=== PATIENT | male | born 1985 | race Caucasian/White ===

== ENCOUNTER 2024-12-21 14:22 | Emergency (ER) | payer OTHER ==
[2024-12-21 15:07] VITALS: RESP 20; TEMP 98.8; BMI 22.9
[2024-12-21 15:24] LABS: ABSOLUTE IMMATURE GRANULOCYTES 0.02 x10^3/uL (0.0-0.031); BASOPHILS # 0.03 x10^3/uL (0.01-0.08); EOSINOPHIL % 0.3 % (0.8-7.0); EOSINOPHILS # 0.02 x10^3/uL (0.04-0.54); HEMATOCRIT 45.4 % (40.1-51.0); HEMOGLOBIN 15.6 g/dL (13.7-17.5); MCHC 34.4 g/dl (32.3-36.5); MEAN CELL VOLUME 87.5 fl (79.0-92.2); MEAN PLT VOLUME 10.2 fl (9.4-12.4); MONOCYTE # 0.62 x10^3/uL (0.30-0.82); MONOCYTE % 8.3 % (5.3-12.2); PLATELET COUNT 290 x10^3/uL (163-337); RDW 11.8 % (12.0-15.6)
[2024-12-21 15:32] LABS: URINE APPEARANCE CLEAR; URINE BILIRUBIN NEGATIVE (NEGATIVE); URINE COLOR YELLOW; URINE GLUCOSE (UA) NEGATIVE (NEGATIVE); URINE KETONE NEGATIVE (NEGATIVE); URINE LEUK ESTERASE NEGATIVE (NEGATIVE); URINE NITRITE NEGATIVE (NEGATIVE); URINE PROTEIN NEGATIVE (NEGATIVE); URINE UROBILINOGEN 0.2 mg/dL (0.2-1.0)
[2024-12-21 15:44] LABS: POTASSIUM 3.9 mmol/L (3.5-5.1)
[2024-12-21 15:46] LABS: ALBUMIN 4.2 g/dl (3.4-5.0); CALCIUM 9.9 mg/dL (8.5-10.1)
[2024-12-21 15:47] LABS: BLOOD UREA NITROGEN 9.2 mg/dL (7-18)
[2024-12-21 15:50] LABS: CREATININE 0.8 mg/dL (0.55-1.3)
[2024-12-21 15:51] LABS: BILIRUBIN,TOTAL 0.7 mg/dL (0.2-1); TOT PROT 7.2 g/dl (6.4-8.2)
[2024-12-21] MEDS ORDERED: FAMOTIDINE 20 MG/50 ML IVPB 20 MG/50 ML MG IVPB ONE (15:54)
[2024-12-21] MEDS ORDERED: DEXAMETHASONE SOD PHOSPHATE 10 MG/1 ML VIAL ONE (15:54)
[2024-12-21] MEDS: FAMOTIDINE 20 MG/50 ML IVPB 20 MG/50 ML MG IVPB ONE (16:03)
[2024-12-21] MEDS: ACETAMINOPHEN 1000 MG/100 ML BAG IVPB ONE ×2 (16:03→16:24)
[2024-12-21] MEDS: DEXAMETHASONE SOD PHOSPHATE 10 MG/1 ML VIAL IVPUSH ONE (16:03)
[2024-12-21] MEDS ORDERED: ACETAMINOPHEN INJECTION 100 ML ONE (16:20)
[2024-12-21 17:43] VITALS: BP 130/79; PULSE 67
== END 2024-12-21 17:57 | disposition home or self-care (01) ==
LOC: JER 14:22
PROC: 3E033GC Introduction of Other Therapeutic Substance into Peripheral Vein, Percutaneous Approach (ICD-10-PCS; principal; 2024-12-21)
PROC: 3E033NZ Introduction of Analgesics, Hypnotics, Sedatives into Peripheral Vein, Percutaneous Approach (ICD-10-PCS; 2024-12-21)
PROC: 3E033GC Introduction of Other Therapeutic Substance into Peripheral Vein, Percutaneous Approach (ICD-10-PCS; 2024-12-21)
PROC: 3E033GC Introduction of Other Therapeutic Substance into Peripheral Vein, Percutaneous Approach (ICD-10-PCS; 2024-12-21)
DX: R10.10 Upper abdominal pain, unspecified (principal); R10.31 Right lower quadrant pain; R10.32 Left lower quadrant pain; R11.0 Nausea
CPT/HCPCS: 36415; 74177-TC; 80053; 81003; 83690; 84484; 85025; 87086; 99285-25; J0131; J1100; Q9967

== ENCOUNTER 2025-04-05 18:51 | Emergency (ER) | payer OTHER ==
[2025-04-05 19:07] VITALS: BP 124/87; PULSE 82; RESP 16; TEMP 98; BMI 21.5
[2025-04-05] MEDS ORDERED: ONDANSETRON 4 MG/2 ML VIAL ONE (19:47)
[2025-04-05] MEDS: SODIUM CHLORIDE 1,000 ML IV ONE (20:09)
[2025-04-05] MEDS: ONDANSETRON 4 MG/2 ML VIAL IVPUSH ONE (20:09)
[2025-04-05 20:21] LABS: ABSOLUTE IMMATURE GRANULOCYTES 0.01 x10^3/uL (0.0-0.031); BASOPHILS # 0.03 x10^3/uL (0.01-0.08); EOSINOPHIL % 0.5 % (0.8-7.0); EOSINOPHILS # 0.04 x10^3/uL (0.04-0.54); MCHC 33.6 g/dl (32.3-36.5); MEAN CELL VOLUME 88.2 fl (79.0-92.2); MEAN PLT VOLUME 10.4 fl (9.4-12.4); MONOCYTE # 0.68 x10^3/uL (0.30-0.82); MONOCYTE % 9.2 % (5.3-12.2); RDW 12.1 % (12.0-15.6)
[2025-04-05 20:34] LABS: ALK PHOS 59 U/L (45-117); CO2 30 mmol/L (21-32); CREATININE 0.8 mg/dl (0.6-1.3); GLUCOSE,RANDOM 84 mg/dl (74-106); SGOT/AST 13 U/L (15-37); SGPT/ALT 15 U/L (7-52); TOT PROT 7.1 g/dl (6.4-8.2)
[2025-04-08 14:35] LABS: HIV INTERPRETATION NEGATIVE (NEGATIVE)
[2025-04-08 22:00] LABS: HCV DIAGNOSTIC IN-HOUSE W/RFLX NON-REACTIVE (NONREACTIVE)
== END 2025-04-05 21:00 | disposition home or self-care (01) ==
LOC: FER 18:51
DX: K44.9 Diaphragmatic hernia without obstruction or gangrene (principal); R10.13 Epigastric pain; R11.0 Nausea
CPT/HCPCS: 36415; 76705-TC; 80053; 83690; 85025; 86803; 87389; 99284-25